=== PATIENT | female | born 1995 | race Caucasian/White ===

== ENCOUNTER 2018-07-15 07:03 | Emergency (ER) | payer MEDICAID, OTHER ==
[~2018-07-15] VITALS: Ht 157.5 cm; Wt 52.4 kg
[~2018-07-15 07:03] MED LIST: ACET500C5 PO; PREN1TAB17 PO
[2018-07-15 07:06] VITALS: BP 136/75; PULSE 78; RESP 18; Ht 157.5 cm; Wt 52.4 kg
[2018-07-15] MEDS ORDERED: NITR-58 PO (08:55)
--- NOTE | 2018-07-15 10:25 | ERD ---
ER Documentation Chief Complaint Chief Complaint pt bib self with c/o bleeding starting today, approx 3 wks HPI 23-year-old female presenting with vaginal bleeding. Patient is . A0. Does not recall her last menstrual period. Patient denies any OB care. She denies any pain. Denies medical problems. NKDA. Surgical history denies. Up-to-date on vaccinations. Social history denies ROS All systems reviewed and are negative except as per history of present illness. Medications Home Meds Active Scripts Nitrofurantoin Monohyd Macrocr* (Macrobid*) 100 Mg Capsr, 100 MG PO BID for 14 Days, CAP Prov:DONNELL ZHANG PA-C 07/15/18 Acetaminophen* (Tylophen*) 500 Mg Capsule, 1 CAP PO Q6H PRN for PAIN AND OR ELEVATED TEMP, #20 CAP Prov:DONIS THOMPSNO KOSHER DIETARY SERVICE MANAGER 11/22/15 Reported Medications Vit-Iron Fumarate-FA ( Tablet) 1 Each Tablet, 1 TAB PO DAILY, TAB 04/25/16 Allergies Allergies: Coded Allergies: No Known Drug Allergies (Verified Allergy, Unknown, 07/15/18) PMhx/Soc Medical and Surgical Hx: pt denies Medical Hx, pt denies Surgical Hx History of Surgery: No Anesthesia Reaction: No Hx Neurological Disorder: No Hx Respiratory Disorders: No Hx Cardiac Disorders: No Hx Psychiatric Problems: No Hx Miscellaneous Medical Probl: No Hx Alcohol Use: No Hx Substance Use: No Hx Tobacco Use: No Smoking Status: Never smoker FmHx Family History: No diabetes, No coronary disease, No other Physical Exam Vitals Vital Signs Date Temp Pulse Resp B/P (MAP) Pulse Ox O2 O2 Flow FiO2 Time Delivery Rate 07/15/18 97.7 78 18 136/75 98 07:06 (95) Physical Exam GENERAL: The patient is well-appearing, well-nourished, in no acute distress HEENT: Atraumatic. Conjunctivae are pink. Pupils equal, round, and reactive to light. There is no scleral icterus. Tympanic membranes clear bilaterally. Oropharynx clear. No nystagmus or photophobia. CHEST: Clear to auscultation bilaterally. There are no rales, wheezes or rhonchi. HEART: Regular rate and rhythm. No murmurs, clicks, rubs or gallops. No S3 or S4. ABDOMEN:Soft, nontender and nondistended. Good bowel sounds. No rebound or guarding. No gross peritonitis. No gross organomegaly or masses. No Ma sign or McBurney point tenderness. Result Diagram: 07/15/1827 Results 24 hrs Laboratory Tests Test 07/15/18 07:27 White Blood Count 8.0 10^3/ul Red Blood Count 4.07 10^6/ul Hemoglobin 12.0 g/dl Hematocrit 35.6 % Mean Corpuscular Volume 87.5 fl Mean Corpuscular Hemoglobin 29.5 pg Mean Corpuscular Hemoglobin Concent 33.7 g/dl Red Cell Distribution Width 13.1 % Platelet Count 299 10^3/UL Mean Platelet Volume 10.1 fl Immature Granulocytes % 0.500 % Neutrophils % 55.5 % Lymphocytes % 33.4 % Monocytes % 8.5 % Eosinophils % 1.5 % Basophils % 0.6 % Nucleated Red Blood Cells % 0.0 /100WBC Immature Granulocytes # 0.040 10^3/ul Neutrophils # 4.4 10^3/ul Lymphocytes # 2.7 10^3/ul Monocytes # 0.7 10^3/ul Eosinophils # 0.1 10^3/ul Basophils # 0.1 10^3/ul Nucleated Red Blood Cells # 0.0 10^3/ul Urine Color STRAW Urine Clarity SLIGHTLY CLOUDY Urine pH 6.0 Urine Specific [place] 1.008 Urine Ketones NEGATIVE mg/dL Urine Nitrite NEGATIVE mg/dL Urine Bilirubin NEGATIVE mg/dL Urine Urobilinogen NEGATIVE mg/dL Urine Leukocyte Esterase 3+ [place]/ul Urine Microscopic RBC 3 /HPF Urine Microscopic WBC 3 /HPF Urine Squamous Epithelial Cells FEW /HPF Urine Bacteria FEW /HPF Urine Hemoglobin 1+ mg/dL Urine Glucose NEGATIVE mg/dL Urine Total Protein NEGATIVE mg/dl Beta HCG, Quantitative 42363.0 mIU/ml Procedures/MDM DIAGNOSTIC IMAGING REPORT Patient: IAIN CALDERON : 1995 Age: 23 Sex: F MR #: [id number] DOS: 07/15/18720 Ordering MD: JASPER ZHANG PA-C Location: [facility] Room/Bed: PROCEDURE: ULTRASOUND OBSTETRICAL CLINICAL INDICATION: 23-year-old female with vaginal bleeding. TECHNIQUE: Multiple sonographic images of the pelvis were obtained. The images were reviewed on a PACS workstation. COMPARISON: No prior studies are available for comparison. FINDINGS: The cervix is closed with a length of 3.1 cm. There is a single viable intrauterine gestation. Cardiac activity is present with 152 beats per minute. There is a breech presentation. Measurements were made in order to determine age. The results are as follows: BPD = 4.36 cm, HC = 15.86 cm, AC = 13.82 cm, FL = 2.85 cm. This yields and estimated gestational age of approximately 19 weeks 0 days. The estimated date of delivery is December 09, 2018. The EFW = 268 +/- 40 g. The placenta is anterior. There is no evidence for an abruption or placenta previa. There is an adequate amount of amniotic fluid. IMPRESSION: Single viable intrauterine gestation of approximately 19 weeks 0 days. The estimated date of delivery is December 09, 2018 . MDM: 23-year-old female presenting with vaginal bleeding. I have low suspicion for complication. Patient has UTI and will be discharged with antibiotics. Patient is discharged with strict ER precautions. Patient is discharged and recommended to follow-up with OB. Patient is told symptoms change or worsen to immediately return to the ER. All questions answered at d ischarge Departure Diagnosis: Primary Impression: UTI (urinary tract infection) Additional Impression: Vaginal bleeding Condition: Stable Patient Instructions: Understanding Urinary Tract Infections (UTIs), Bleeding During Early Referrals: [facility] [id number] [id number] OFFICE FAX JAVAD CHAVEZ [address] [place] [place] [phone] [place] [address] [place], [place] [phone] EMILE CARTER [address] [facility], [facility] [address] [place] [address] [address] [place] [place] [phone] [facility] [address] [place] [address] [facility] [id number] - [place]AN [address] [facility] [address] [address], [place] [address] [facility]. [address], [facility] [address] [address], [facility] [address] [place], [place] [phone] Additional Instructions: FOLLOW UP WITH YOUR PRIMARY CARE PHYSICIAN TOMORROW.Return to this facility if you are not improving as expected. DONNELL ZHANG PA-C Jul 15, 2018 10:25
== END 2018-07-15 08:59 | disposition home or self-care (01) ==
LOC: FTE 07:03
DX: O23.42 Unspecified infection of urinary tract in pregnancy, second trimester (principal); Z3A.19 19 weeks gestation of pregnancy
CPT/HCPCS: 36415; 76805; 81001; 84702; 85025; 86900; 86901; Z7502

== ENCOUNTER 2018-10-01 12:26 | Outpatient (CLI) | payer MEDICAID, OTHER ==
[~2018-10-01] VITALS: Ht 165.1 cm; Wt 59.1 kg
[~2018-10-01 12:26] MED LIST changes: +NITR-58 PO
[2018-10-01 13:31] VITALS: BP 111/71; PULSE 88; Ht 165.1 cm; Wt 59.1 kg
--- NOTE | 2018-10-01 16:17 | PN ---
Triage Information Date/Time 10/01/1803/14/1611 Reason for visit: Abd/pelvic pain Weeks of Gestation 34w1d /Para Diabetes: none Hypertention: none Additional information vaginal spotting and leaking pain was yesterday worse today much better after resting lifting baby 2yrs Objective Vital Signs Date Temp Pulse Resp B/P (MAP) Pulse Ox O2 O2 Flow FiO2 Time Delivery Rate 10/01/18 98.2 88 111/71 13:31 (84) Heart Rate: 140's Contractions: >10 Minutes Apart Exam ROM plus neg B Results/Medications Results 24 hrs Laboratory Tests Test 10/01/18 13:25 10/01/18 15:10 Urine Color YELLOW Urine Clarity SLIGHTLY CLOUDY A Urine pH 8.0 Urine Specific [place] 1.018 Urine Ketones NEGATIVE Urine Nitrite NEGATIVE Urine Bilirubin NEGATIVE Urine Urobilinogen NEGATIVE Urine Leukocyte Esterase 1+ H Urine Microscopic RBC 1 Urine Microscopic WBC 8 H Urine Squamous Epithelial Cells FEW Urine Bacteria FEW A Urine Hemoglobin 1+ H Urine Glucose NEGATIVE Urine Total Protein 1+ H Membranes Rupture NEGATIVE Imaging Results BPP 03/03 KARTHIKEYAN 15.8 breech presentation CVL 4.1 Disposition: Discharge Assessment/Plan IUP 34w1d pelvic pain ligament pain Plan discharge home with instruction not to handle heavy object avoid sudden motion LILY MARCELINO MD Oct 01, 2018 16:17
--- NOTE | 2018-10-01 17:20 | TRIAGE ---
OB Triage Datetime Report Generated by CPN: 10/01/2018 17:20 Datetime: 10/01/2018 16:01 Stage of : OB Triage Datetime: 10/01/2018 15:32 Labor Evaluation Frequency: X1 Monitor Mode: External Duration (sec)2399: 40 Quality: Mild Pattern: Normal: <= 5 Contractions in 10 Minutes Resting Tone [place]: Relaxed Heart Rate FHR Baseline Rate: 145 Monitor Mode: External US Variability: Moderate 6-25 bpm Accelerations: 10X10 Decelerations: None Category: Category I Pain Assessment Pain Scale: 0 Pain Presence: None/Denies Pain Type: N/A Pain Goal: 3 Pain Relief Measures: Comfort Measures Datetime: 10/01/2018 14:35 Labor Evaluation Frequency: 0 Monitor Mode: External Pattern: Normal: <= 5 Contractions in 10 Minutes Resting Tone [place]: Relaxed Heart Rate FHR Baseline Rate: 135 Monitor Mode: External US Variability: Moderate 6-25 bpm Accelerations: 10X10 Decelerations: None Category: Category I Pain Assessment Pain Scale: 0 Pain Presence: None/Denies Pain Type: N/A Pain Goal: 3 Pain Relief Measures: Comfort Measures Datetime: 10/01/2018 13:28 Stage of : OB Triage Assessment Type: Triage Maternal Assessment Level of Consciousness: Fully Conscious DTR's/Clonus: DTRs 2+; No Clonus Headache: Denies Blurred Vision: No Respiratory Effort: Unlabored; Regular Rhythm; Equal Expansion Breath Sounds, Left: Clear and Equal Breath Sounds, Right: Clear and Equal Nausea/Vomiting: Denies RUQ Epigastric Pain: Denies Facial Edema: None Temperature Route: Axillary Fall Risk Assessment History of Falling: (0) No Secondary Diagnosis: (0) No Ambulatory Aid: (0) Bedrest/Nurse Assist IV Therapy: (0) No Gait: (0) Normal/Bedrest/Immobile Mental Status: (0) Oriented to Own Ability Fall Score: 0 Fall Risk Score Definition: No Risk: No action required Labor Evaluation Frequency: 0 Monitor Mode: External Pattern: Normal: <= 5 Contractions in 10 Minutes Resting Tone [place]: Relaxed Heart Rate FHR Baseline Rate: 145 Monitor Mode: External US Variability: Moderate 6-25 bpm Accelerations: 10X10 Decelerations: None Category: Category I Pain Assessment Pain Scale: 0 Pain Presence: None/Denies Pain Type: Cramping Pain Location: Right Groin Pain Goal: 3 Pain Relief Measures: Comfort Measures Datetime: 10/01/2018 13:27 EGA: 34.1 Datetime: 10/01/2018 13:25 Time of Arrival: 10/01/2018 12:10 Arrived By: Ambulatory Arrived From: Home Chief Complaint: C/O LEAKING, SPOTTING, AND LOWER PERINEAL PAIN SINCE LAST NIGH Movement: Present Contractions: Occasional Rupture of Membranes: Unsure Vaginal Bleeding: Scant Vaginal Discharge: Present Recent Sexual Intercouse: Denies Abdominal Trauma: Not Applicable Patient Complaints: Cramping Time Provider Notified: 10/01/2018 14:43 Provider Notified: CHARI Initial Plan: MONITOR, ROM PLUS, NITRAZINE,
== END 2018-10-01 16:15 | disposition home or self-care (01) ==
LOC: L-D 12:26 → OBT 12:26 → L-D 13:24 → OBT 16:15
PROVIDERS: ATTEND Obstetrics & Gynecology
DX: O26.893 Other specified pregnancy related conditions, third trimester (principal); Z3A.34 34 weeks gestation of pregnancy; R10.2 Pelvic and perineal pain
CPT/HCPCS: 76817; 76818; 81001; 84112; 87086; Z7500; G0463

== ENCOUNTER 2018-11-11 19:36 | Outpatient (CLI) | payer OTHER ==
[~2018-11-11] VITALS: Ht 154.9 cm; Wt 61.1 kg
[~2018-11-11 19:36] MED LIST changes: -ACET500C5 PO; -NITR-58 PO
[2018-11-11 20:20] VITALS: BP 117/73; PULSE 74; RESP 18
[2018-11-11 20:21] VITALS: Ht 154.9 cm; Wt 61.1 kg
--- NOTE | 2018-11-11 23:26 | PN ---
Triage Information Date/Time 11/11/18 Reason for visit: vaginal pressure sensation Weeks of Gestation 35w4d /Para Diabetes: none Hypertention: none Objective Vital Signs Date Temp Pulse Resp B/P (MAP) Pulse Ox O2 O2 Flow FiO2 Time Delivery Rate 11/11/18 99.0 74 18 117/73 Room Air 20:20 (88) Heart Rate: 130's Heart Rate Comments CAT I Contractions: >10 Minutes Apart Exam VE /-3 Results/Medications Results 24 hrs Laboratory Tests Test 11/11/18 20:00 Urine Color YELLOW Urine Clarity SLIGHTLY CLOUDY A Urine pH 7.0 Urine Specific [place] 1.011 Urine Ketones NEGATIVE Urine Nitrite NEGATIVE Urine Bilirubin NEGATIVE Urine Urobilinogen NEGATIVE Urine Leukocyte Esterase 3+ H Urine Microscopic RBC 4 Urine Microscopic WBC 18 H Urine Squamous Epithelial Cells FEW Urine Bacteria FEW A Urine Hemoglobin NEGATIVE Urine Glucose NEGATIVE Urine Total Protein NEGATIVE Imaging Results BPP 8/8 KARTHIKEYAN 16.7 Disposition: Discharge Assessment/Plan IUP 35w4d NIL UTI Plan discharge home with Rx cephalexin 500mg Q6hrs #28 RTH prpn with routine labor instructions LILY MARCELINO MD Nov 11, 2018 23:26
--- NOTE | 2018-11-12 00:36 | TRIAGE ---
OB Triage Datetime Report Generated by CPN: 11/12/2018 00:36 Datetime: 11/11/2018 22:39 Stage of : OB Triage Vaginal Exam Dilatation (cms): 1.0 Effacement (%): 50 Station: -3 Exam By: GKashman, RN Datetime: 11/11/2018 22:24 Stage of : OB Triage Labor Evaluation Frequency: Irregular Monitor Mode: External Duration (sec)2399: 40-70 Pattern: Normal: <= 5 Contractions in 10 Minutes Resting Tone [place]: Relaxed Heart Rate FHR Baseline Rate: 120 Monitor Mode: External US Variability: Moderate 6-25 bpm Accelerations: 15X15 Decelerations: None Category: Category I Pain Assessment Pain Scale: 0 Pain Presence: None/Denies Pain Type: N/A Pain Relief Measures: Comfort Measures Datetime: 11/11/2018 22:15 Stage of : OB Triage Datetime: 11/11/2018 20:55 Stage of : OB Triage Datetime: 11/11/2018 20:50 Stage of : OB Triage Datetime: 11/11/2018 20:22 Stage of : OB Triage Assessment Type: Triage Maternal Assessment Level of Consciousness: Fully Conscious DTR's/Clonus: DTRs 2+; No Clonus Headache: Denies Blurred Vision: No Respiratory Effort: Unlabored; Regular Rhythm; Equal Expansion Breath Sounds, Left: Clear and Equal Breath Sounds, Right: Clear and Equal Nausea/Vomiting: Denies RUQ Epigastric Pain: Denies Lower Extremities Edema: None Degree: None Upper Extremities Edema: None Degree: None Facial Edema: None Temperature Route: Oral Fall Risk Assessment History of Falling: (0) No Secondary Diagnosis: (0) No Ambulatory Aid: (0) Bedrest/Nurse Assist IV Therapy: (0) No Gait: (0) Normal/Bedrest/Immobile Mental Status: (0) Oriented to Own Ability Fall Score: 0 Fall Risk Score Definition: No Risk: No action required Monitor Mode: External Contraction Comments: No contractions noted on monitor or by palpation. Heart Rate FHR Baseline Rate: 130 Monitor Mode: External US Variability: Moderate 6-25 bpm Decelerations: None Category: Category I Pain Assessment Pain Scale: 0 Pain Presence: None/Denies Pain Type: N/A Pain Goal: 0 Pain Relief Measures: Comfort Measures Datetime: 11/11/2018 20:19 Stage of : OB Triage Vaginal Exam Dilatation (cms): 1.0 Effacement (%): 50 Station: -3 Exam By: CADENCE Montemayor Datetime: 11/11/2018 20:11 Time of Arrival: 11/11/2018 19:29 EGA: 35.4 Arrived By: Wheelchair Arrived From: Emergency Dept Chief Complaint: Vaginal pressure Movement: Present Contractions: Occasional Rupture of Membranes: Denies Vaginal Discharge: Present Abdominal Trauma: Not Applicable Patient Complaints: Other Time Provider Notified: 11/11/2018 20:20 Provider Notified: fermín Initial Plan: EFM, VS, SVE, BPP, KARTHIKEYAN, UA Datetime: 10/01/2018 13:28 Fall Score: 0 Fall Risk Score Definition: No Risk: No action required Datetime: 10/01/2018 13:27 EGA: 29.5
== END 2018-11-11 23:00 | disposition home or self-care (01) ==
LOC: OBT 19:36 → L-D 19:37 → OBT 23:00
PROVIDERS: ATTEND Obstetrics & Gynecology
DX: O23.43 Unspecified infection of urinary tract in pregnancy, third trimester (principal); Z3A.35 35 weeks gestation of pregnancy
CPT/HCPCS: 76818; 81001; 87086; Z7500; G0463

== ENCOUNTER 2018-12-01 10:10 | Inpatient (IN) | payer OTHER ==
[~2018-12-01] VITALS: Ht 152.4 cm; Wt 63.2 kg
[2018-12-01 10:16] VITALS: BP 112/71; PULSE 73; RESP 19; Ht 152.4 cm; Wt 63.2 kg
--- NOTE | 2018-12-01 11:38 | TRIAGE ---
OB Triage Datetime Report Generated by CPN: 12/01/2018 11:38 Datetime: 12/01/2018 11:08 Vaginal Exam Dilatation (cms): 5.0 Effacement (%): 80 Station: -2 Exam By: A GHUKASYAN Datetime: 12/01/2018 10:21 Assessment Type: Triage Maternal Assessment Level of Consciousness: Fully Conscious DTR's/Clonus: DTRs 2+; No Clonus Headache: Denies Blurred Vision: No Respiratory Effort: Unlabored; Regular Rhythm; Equal Expansion Breath Sounds, Left: Clear and Equal Breath Sounds, Right: Clear and Equal Nausea/Vomiting: Denies RUQ Epigastric Pain: Denies Lower Extremities Edema: None Degree: None Upper Extremities Edema: None Degree: None Facial Edema: None Fall Risk Assessment History of Falling: (0) No Secondary Diagnosis: (0) No Ambulatory Aid: (0) Bedrest/Nurse Assist IV Therapy: (0) No Gait: (0) Normal/Bedrest/Immobile Mental Status: (0) Oriented to Own Ability Fall Score: 0 Fall Risk Score Definition: No Risk: No action required Datetime: 12/01/2018 10:20 Time of Arrival: 12/01/2018 10:02 EGA: 38.3 Arrived By: Ambulatory Arrived From: Home Chief Complaint: LOWER ABD PRESSURE Movement: Present Contractions: Irregular Time Contractions Began: 12/01/2018 06:00 Rupture of Membranes: Denies Vaginal Bleeding: None Vaginal Discharge: Denies Recent Sexual Intercouse: Denies Abdominal Trauma: Not Applicable Patient Complaints: Contractions; Back Pain; Other Time Provider Notified: 12/01/2018 11:20 Provider Notified: DR RAND Initial Plan: NST BPP EFW UA Labor Evaluation Frequency: OCCAS Monitor Mode: External Duration (sec)2399: 50-60 Quality: Mild Pattern: Normal: <= 5 Contractions in 10 Minutes Resting Tone [place]: Relaxed Heart Rate FHR Baseline Rate: 130 Monitor Mode: External US Variability: Moderate 6-25 bpm Accelerations: 15X15 Decelerations: None Category: Category I Datetime: 11/11/2018 20:22 Fall Score: 0 Fall Risk Score Definition: No Risk: No action required Datetime: 11/11/2018 20:11 EGA: 35.4 Datetime: 10/01/2018 13:28 Fall Score: 0 Fall Risk Score Definition: No Risk: No action required Datetime: 10/01/2018 13:27 EGA: 29.5 Presentation 'A': Cephalic
[2018-12-01] MEDS: LACTATED RINGER'S 1,000 ML IV SCH ×2 (11:55→12:58)
[2018-12-01] MEDS ORDERED: IBUPROFEN 600 MG TAB PO PRN (12:00)
[2018-12-01] MEDS ORDERED: OXYTOCIN 30 UNITS/LR 500 ML IV PRN ×2 (12:00→17:00)
[2018-12-01] MEDS ORDERED: METHYLERGONOVINE 0.2 MG INJ IM PRN ×2 (12:00→17:00)
[2018-12-01] MEDS ORDERED: AMPICILLIN 2 GM/NS (PMX) 100 ML IV ONE (12:00)
[2018-12-01] MEDS ORDERED: CARBOPROST 250 MCG INJ IM PRN ×2 (12:00→17:00)
[2018-12-01] MEDS ORDERED: MISOPROSTOL 200 MCG TAB PR PRN ×2 (12:00→17:00)
[2018-12-01] MEDS ORDERED: BUTORPHANOL 2 MG INJ IV PRN (12:00)
[2018-12-01] MEDS ORDERED: OXYTOCIN 30 UNITS/LR 500 ML IV SCH ×4 (12:00→16:32)
[2018-12-01] MEDS ORDERED: LIDOCAINE 1% (MPF) 30 ML INJ INJ PRN (12:00)
[2018-12-01] MEDS ORDERED: MINERAL OIL LIGHT 10 ML VIAL TOP ONE (12:30)
--- NOTE | 2018-12-01 12:41 | PREAC ---
Date/Time of Note Date/Time of Note DATE: 12/01/18 TIME: 12:41 Anesthesia Eval and Record Evaluation Time Pre-Procedure Interview DATE: 12/01/18 TIME: 12:41 Age 23 Sex female NPO: 8 hrs Preoperative diagnosis Planned procedure labor epidural Past Medical History Past Medical History: None Surgery & Anesthesia Issues No known issue Meds Anticoagulation: No Beta Luigi within 24 hr: No Reason Beta Luigi not given: Pt. not on B-Luigi Reported Medications Vit-Iron Fumarate-FA ( Tablet) 1 Each Tablet, 1 TAB PO DAILY, TAB 04/25/16 Current Medications Lactated Ringer's 1,000 ml @ 125 mls/hr Q8H IV Last administered on 12/01/18at 11:55; Admin Dose 125 MLS/HR; Start 12/01/18 at 11:44 Butorphanol Tartrate (Stadol) 2 mg Q2H PRN IV .PAIN SCALE 6-10; Start 12/01/18 at 12:00 Lidocaine (Xylocaine 1% (Mpf)) 30 ml ONCE PRN INJ .EPISIOTOMY; Start 12/01/18 at 12:00 Oxytocin/Lactated Ringer's 500 ml @ 500 mls/hr ONCE POST IV ; Start 12/01/18 at 12:00 Oxytocin/Lactated Ringer's 500 ml @ 125 mls/hr POST IV ; Start 12/01/18 at 12:00 Ibuprofen (Motrin) 600 mg ONCE PRN PO .PAIN 1-5; Start 12/01/18 at 12:00 Oxytocin/Lactated Ringer's 500 ml @ 0 mls/hr ONCE PRN IV .VAGINAL BLEEDING; Start 12/01/18 at 12:00 Methylergonovine Maleate (Methergine) 0.2 mg ONCE PRN IM .VAGINAL BLEEDING; Start 12/01/18 at 12:00 Carboprost Tromethamine (Hemabate) 250 mcg ONCE PRN IM .VAGINAL BLEEDING; Start 12/01/18 at 12:00 Misoprostol (Cytotec) 1,000 mcg ONCE PRN [place] .VAGINAL BLEEDING; Start 12/01/18 at 12:00 Oxytocin/Lactated Ringer's 500 ml @ 0 mls/hr FOR AUGMENTATION IV Last administered on 12/01/18at 12:35; Admin Dose 1 MLS/HR; Start 12/01/18 at 12:30 Meds reviewed: Yes Allergies Coded Allergies: No Known Drug Allergies (Verified Allergy, Unknown, 07/15/18) Allergies Reviewed: Yes Labs/Studies Labs Reviewed: Reviewed by anesthesiologist Result Diagram: 12/01/18 1145 Laboratory Tests 12/01/18 11:45 Blood Bank Test 12/01/18 11:45 Blood Type O POSITIVE Rh Immune Globulin Candidate NO test: Positive Pre-procedure Exam Last vitals Vital Signs Date Temp Pulse Resp B/P (MAP) Pulse Ox O2 O2 Flow FiO2 Time Delivery Rate 12/01/18 97.9 73 19 112/71 Room Air 10:16 (85) Airway: Adequate mouth opening, Adequate thyromental dist Mallampati: Mallampati II Teeth: Normal Lung: Normal Heart: Normal ASA Physical Status ASA physical status: 2 Emergency: None Planned Anesthetic Neuraxial: Epidural Pre-operative Attestations Prior to commencing anesthesia and surgery, the patient was re-evaluated, there was verification of: *The patient's identity *The results of appropriate recent lab work and preoperative vital signs *The above evaluation not changing prior to induction *Anesthetic plan, risk benefits, alternative and complications discussed with patient/family; questions answered; patient/family understands, accepts and wishes to proceed. KULWINDER PINEDA December 01, 2018 12:41
[2018-12-01] MEDS ORDERED: DIPHENHYDRAMINE 50 MG INJ IV PRN ×2 (13:00→17:00)
[2018-12-01] MEDS ORDERED: ONDANSETRON 4 MG INJ IV PRN ×2 (13:00→17:00)
[2018-12-01] MEDS ORDERED: KETOROLAC 30 MG INJ IV PRN (13:00)
[2018-12-01] MEDS ORDERED: FENTAnyl 2MCG/ML-ROPIV 0.2% 100 ML BAG EPI SCH (13:00)
[2018-12-01] MEDS ORDERED: HYDROmorphONE 0.5 MG/0.5 ML SYG IV PRN ×2 (13:00)
[2018-12-01] MEDS ORDERED: NALOXONE (0.4 MG/ML) INJ IV PRN (13:00)
[2018-12-01] MEDS ORDERED: AMPICILLIN 1 GM/NS (PMX) 50 ML IV SCH (14:30)
--- NOTE | 2018-12-01 14:38 | HP ---
Date/Time of Note Date/Time of Note DATE: 12/01/18 TIME: 14:36 OB - History Hx of Present Free Text/Dictation 23 years old 2 para 1-0-0-1 with single intrauterine at 38 weeks and 3 days complaining of uterine contractions. She states good movement. She denies nausea, vomiting, shortness of breath, chest pain, headache, visual changes, vaginal bleeding or LOF. Chief Complaint: Uterine contractions Estimated Due Date: December 12, 2018 : 2 Para: 1 Spontaneous : 0 Therapeutic : 0 Care: Good Care Ultrasounds: Normal mid trimester US Obstetrical Complications: None Medical Complications: None Past Family/Social History * Past Medical, Surgical, Family and Obstetric Histories reviewed from chart. Blood Type: O+ Rubella: immune RPR/VDRL: Negative GBS Status: Negative HBsAG: Negative OB Admission Exam Vital Signs Vital Signs Vital Signs Date Temp Pulse Resp B/P (MAP) Pulse Ox O2 O2 Flow FiO2 Time Delivery Rate 12/01/18 97.9 73 19 112/71 Room Air 10:16 (85) Physical Exam HEENT: WNL Heart: Rhythm Normal Lungs: Clear Abdomen: WNL Extremities: Normal Cervical Dilatation: 5cm Effacement: 75% Station: -2 Membranes: Intact Heart Rate: 130's Accelerations: Accelerations Present Decelerations: No Decelerations Varibility: Moderate Contractions on Admission: < 5 Minutes Apart Intensity: Firm Last 72 hours Lab Results CBC & BMP 12/01/18 11:45 OB Assessment/Plan Other plan: 23 years old 2 para 1-0-0-1 at 38 weeks and 3 days in active labor - FHR: No sign of metabolic acidosis- Category I - Continuous EFM, toco - CBC, blood type and screen - Analgesia options with R/B/A discussed in detail with patient - Epidural per patient request - Please see the orders - O+/Rubella: Immune - GBS: Negative Admission, procedures, expectations, risks and possible complications have been discussed in detail with the patient. Risk of vaginal delivery including but not limited to bleeding, infection, cervical laceration, placental retention, injury to fetus, blood transfusion, blood transfusion related infection, risk of anesthesia, adhesion, cervical laceration, episiotomy/laceration, possible delivery with risk of bleeding, infection, injury to other organs (bowel, bladder, ureter, vessels, nerves), injury to fetus, blood transfusion, blood transfusion related infection, risk of anesthesia, scar and hernia formation, needs for future , removal of uterus or any other indicated surgery discussed with the patient. She expressed understanding and repeats the risks. All of her questions were answered. She signed the informed consent. PHYSICIAN'S VERIFICATION OF INFORMED CONSENT The patient was counseled regarding the procedure, its indications, risks, potential complications and alternatives and any questions were answered. Consent was obtained. PLANNED PROCEDURE/TREATMENT: Vaginal delivery, episiotomy, repair of laceration possible delivery SUNG RAND December 01, 2018 14:38
--- NOTE | 2018-12-01 14:41 | LDN ---
Date/Time of Note Date/Time of Note DATE: 12/01/18 TIME: 14:38 Delivery Summary 23 years old 2 para 1-0-0-1 with single intrauterine at 38 weeks and 3 days delivered a viable male over intact perineum. There was a tight nuchal cord which clamped and cut. Rest of body delivered. Baby given to the nurse. Placenta delivered spontaneously and intact with three- vessel cord. Patient tolerated procedure well Time of delivery 14:19 Weight 6 pounds 11 ounces Height 19.5 inches 8 at 1 minutes and 9 at 5 minutes EBL 150 mL Weeks of Gestation The 8 weeks and 3 days Placenta Delivered: Spontaneously Meconium: none Episiotomy: No Anesthesia type: Epidural Estimated blood loss: 150 Sponge & Needle done & correct: Yes All needle counts correct: Yes Any foreign bodies felt in the: No Infant Delivery Information Sex Infant Sex: male Apgars 1 Minute: 8 5 Minute: 9 10 Minute: 10 Suctioning Nose & mouth suctioned at sweta: Yes Umbilical Cord Umbilical cord with: 3 Vessels Cord presentations: nuchal cord Nuchal cord present X: 1 Cord Blood was obtained: Yes Mother & Baby Disposition Disposition Mom & Baby to Maternity; Good: Yes SUNG RAND December 01, 2018 14:41
[2018-12-01 15:25] VITALS: BP 138/85; PULSE 63; RESP 16
[2018-12-01] MEDS ORDERED: MAGNESIUM HYDROXIDE 30ML CUP PO PRN (17:00)
[2018-12-01] MEDS ORDERED: LANOLIN HPA 1 PKT TOP PRN (17:00)
[2018-12-01] MEDS ORDERED: WITCH HAZEL/GLYCERIN PAD PR PRN (17:00)
[2018-12-01] MEDS ORDERED: SENNA/DOCUSATE NA (8.6MG/50MG) TAB PO PRN (17:00)
[2018-12-01] MEDS ORDERED: ZOLPIDEM 5 MG TAB PO PRN (17:00)
[2018-12-01] MEDS ORDERED: DIBUCAINE 1% 30 GM OINT TOP PRN (17:00)
[2018-12-01] MEDS ORDERED: ACETAMINOPHEN 325 MG TAB PO PRN (17:00)
[2018-12-01] MEDS ORDERED: OXYCODONE/ASPIRIN (4.88/325) TAB PO PRN (17:00)
[2018-12-01] MEDS ORDERED: BENZOCAINE 20% 56 ML SPRAY TOP PRN (17:00)
[2018-12-01] MEDS: IBUPROFEN 600 MG TAB PO SCH ×2 (17:36→23:51)
--- NOTE | 2018-12-01 19:43 | PAC ---
Date/Time of Note Date/Time of Note DATE: 12/01/18 TIME: 19:43 Post-Anesthesia Notes Post-Anesthesia Note Last documented vital signs Vital Signs Date Temp Pulse Resp B/P (MAP) Pulse Ox O2 O2 Flow FiO2 Time Delivery Rate 12/01/18 97.8 63 16 138/85 Room Air 15:25 (102) Activity: WNL Respiratory function: WNL Cardiovascular function: WNL Mental status: Baseline Pain reasonably controlled: Yes Hydration appropriate: Yes Nausea/Vomiting absent: Yes KULWINDER PINEDA December 01, 2018 19:43
[2018-12-01] MEDS: LACTATED RINGER'S 1,000 ML IV* SCH (20:00)
[2018-12-01] MEDS: DEXTROSE 5%-LR 1,000 ML IV SCH (20:00)
[2018-12-02 00:20] VITALS: BP 108/55; PULSE 60; RESP 18
[2018-12-02] MEDS: LACTATED RINGER'S 1,000 ML IV* SCH ×3 (00:32→16:32)
[2018-12-02] MEDS: DEXTROSE 5%-LR 1,000 ML IV SCH ×3 (00:32→16:32)
[2018-12-02 03:26] VITALS: BP 107/59; PULSE 62; RESP 18
[2018-12-02] MEDS: IBUPROFEN 600 MG TAB PO SCH ×4 (05:40→23:58)
[2018-12-02 07:45] VITALS: BP 113/68; PULSE 51; RESP 16
[2018-12-02 16:15] VITALS: BP 106/62; PULSE 70
--- NOTE | 2018-12-02 17:25 | PN ---
Date/Time of Note Date/Time of Note DATE: 12/02/18 TIME: 17:24 OB Subjective Subjective Subjective Denies any complaint. Breast-feeding. Ambulating. Denies any chest pain, di zziness, lightheadedness, shortness of breath, vaginal bleeding decreased. OB Objective Objective Objective GA: A&O,NAD Abdomen. Soft,non tender. Firm and palpable at the level of umbilicus Lungs: Clear to auscultation bilaterally CV: RRR VS - Last 72 Hours, by Label Date Temp Pulse Resp B/P (MAP) Pulse Ox O2 O2 Flow FiO2 Time Delivery Rate 12/02/18 98.3 70 106/62 Room Air 16:15 (77) 12/02/18 97.8 51 16 113/68 Room Air 07:45 (83) 12/02/18 98.6 62 18 107/59 Room Air 03:26 (75) 12/02/18 98.2 60 18 108/55 Room Air 00:20 (72) 12/01/18 97.8 63 16 138/85 Room Air 15:25 (102) 12/01/18 97.9 73 19 112/71 Room Air 10:16 (85) Laboratory Tests Test 12/02/18 06:24 12/02/18 09:48 Lab Scanned Report REFERENCE LAB White Blood Count 11.6 #H Red Blood Count 3.91 L Hemoglobin 11.0 L Hematocrit 33.7 L Mean Corpuscular Volume 86.2 Mean Corpuscular Hemoglobin 28.1 L Mean Corpuscular Hemoglobin Concent 32.6 Red Cell Distribution Width 14.5 Platelet Count 258 Mean Platelet Volume 11.2 H Immature Granulocytes % 0.700 H Neutrophils % 71.7 Lymphocytes % 19.7 Monocytes % 6.4 Eosinophils % 1.2 Basophils % 0.3 Nucleated Red Blood Cells % 0.0 Immature Granulocytes # 0.080 H Neutrophils # 8.3 H Lymphocytes # 2.3 Monocytes # 0.7 Eosinophils # 0.1 Basophils # 0.0 Nucleated Red Blood Cells # 0.0 OB Assessment/Plan Other Assessment: day #1 Status post Doing well Routine care Anticipate DC home tomorrow LEO GLOVER MD December 02, 2018 17:25
[2018-12-02 20:00] VITALS: BP 97/54; PULSE 79; RESP 18
[2018-12-03 03:50] VITALS: BP 100/78; PULSE 79; RESP 18
[2018-12-03] MEDS: IBUPROFEN 600 MG TAB PO SCH ×2 (05:20→12:17)
[2018-12-03 08:00] VITALS: BP 111/63; PULSE 64; RESP 18
[2018-12-03] MEDS ORDERED: DIPHTH/TET/ACEL PERTUSS (ADULT) 0.5 ML VIAL IM* ONE (09:00)
[2018-12-03] MEDS ORDERED: MEASLES,MUMPS,RUBELLA VACCINE INJ SC* ONE (09:00)
--- NOTE | 2018-12-03 15:10 | PD.PPDC ---
PEDIATRIC OCCUPATIONAL THERAPIST Discharge Instruction Diagnosis [id number] Final Diagnosis: [id number] S/P Condition [id number] Patient Condition: Wguad1g Stable Diet [id number] Diet: Facyg8t Resume Regular Diet Activity/Restrictions [id number] Activity: [id number] May Shower [id number] Restrictions: Zkntx7s No Lifting No Sexual Activity Nothing in the Vagina No [place] No Tampons, douche Follow-up Follow-up with Physician: 2, Week/Weeks Return to clinic for Gckrv1En EMPLOYEE DEVELOPMENT DIRECTOR Instructions: [id number] Fever greater than 101 Chills Worsening abdominal pain Excessive Vaginal Bleeding More than 2 pads per hour Unable to tolerate diet [id number] OB Instructions: Tolml5u Breast Tenderness Depression Blurried Vision Headache LILY MARCELINO MD December 03, 2018 15:10
--- NOTE | 2018-12-03 18:47 | DS ---
Date/Time of Note Date/Time of Note DATE: 12/03/18 TIME: 18:46 Obstetrical Discharge Record Final Diagnosis Final Diagnosis: Term delivered Vaginal Delivery Obstetrical Delivery: Spontaneous Complications Augmentation: No Induction: No Rupture of Membranes: No Condition on Discharge Physical Assessment Last Vitals: VSS afebrile Voiding: Yes Bowel Movement: Yes Breast: Soft, non-tender Fundus: Firm Abdomen and Incision: n/a Episiotomy: n/a Calf Tenderness: No Patient Condition: Stable LILY MARCELINO MD December 03, 2018 18:47
--- NOTE | 2018-12-04 16:57 | DELSUM ---
Delivery Summary A-C Datetime Report Generated by CPN: 12/04/2018 16:57 DELIVERY PERSONNEL Travel Director: Cubil, [place] MATERNAL INFORMATION Medications in Delivery: pitocin Delivery QBL (ml): 150 Placenta Cultured: No Maternal Complications: Other LABOR SUMMARY EDC: 12/12/2018 00:00 No. Babies in Womb: 1 Attempted: No Labor Anesthesia: Epidural LABOR INFORMATION Reason for Induction: Not Applicable Onset of Labor: 12/01/2018 04:00 Complete Dilatation: 12/01/2018 14:10 Oxytocin: N/A Group B Beta Strep: Negative Antibiotics # of Doses: 0 Steroids Given: None Reason Steroids Not Administered: Not Applicable MEMBRANES Membranes Rupture Method: Spontaneous Rupture of Membranes: 12/01/2018 14:10 Length of Rupture (hr): 0.15 Amniotic Fluid Color: Clear Amniotic Fluid Amount: Moderate Amniotic Fluid Odor: Normal STAGES OF LABOR Stage 1 hr: 10 Stage 1 min: 10 Stage 2 hr: 0 Stage 2 min: 9 Stage 3 hr: 0 Stage 3 min: 1 Total Time in Labor hr: 10 Total Time in Labor min: 20 VAGINAL DELIVERY Episiotomy: None Laceration Extension: N/A Laceration Type: None Laceration Repair: Not Applicable Initial Vag Sponge Count: 10 Final Vag Sponge Count: 10 Initial Vag Sharps Count: 1 Final Vag Sharps Count: 1 Sponge Count Correct: Yes Sharps Count Correct: Yes BABY A INFORMATION Infant Delivery Date/Time: 12/01/2018 14:19 Method of Delivery: Vaginal Born in Route : No : N/A Forceps: N/A Vacuum Extraction: N/A Shoulder Dystocia : N/A SHOULDER DYSTOCIA BABY A Infant Delivery Date/Time: 12/01/2018 14:19 PRESENTATION/POSITION BABY A Presentation: Cephalic Cephalic Presentation: Vertex Vertex Position: Left Occipital Anterior Breech Presentation: N/A PLACENTA INFORMATION BABY A Placenta Delivery Time : 12/01/2018 14:20 Placenta Method of Delivery: Spontaneous Placenta Status: Delivered SCORES BABY A Heart Rate 1 min: >100 bpm Resp Effort 1 min: Good Cry Reflex Irritability 1 min: Cough/Sneeze/Pulls Away Muscle Tone 1 min: Active Motion Color 1 min: Blue/Pale Resuscitation Effort 1 min: Tactile Stimulation; Oxygen SCORE 1 MIN: 8 Heart Rate 5 min: >100 bpm Resp Effort 5 min: Good Cry Reflex Irritability 5 min: Cough/Sneeze/Pulls Away Muscle Tone 5 min: Active Motion Color 5 min: Body [place], Extremit Blue Resuscitation Effort 5 min: Tactile Stimulation SCORE 5 MIN: 9 INFORMATION BABY A Gestational Age at Delivery: 38.3 Gestational Status: Early Term- 37- 38.6 Weeks Infant Outcome : Liveborn Infant Condition : Stable Sex: Male IDENTIFICATION/MEDS BABY A ID Band Number: [id number] ID Band Location: Right Leg; Left Leg Sensor Applied: Yes Sensor Number: [id number] Sensor Location : Cord Clamp Vitamin K Given : Not Given Erythromycin Given: Not Given WEIGHT/LENGTH BABY A Infant Birthweight (gm): 3025 Infant Weight (lb): 6 Infant Weight (oz): 11 Infant Length (in): 19.50 Infant Length (cm): 49.53 CORD INFORMATION BABY A No. Cord Vessels: 3 Nuchal Cord : Around Neck x1, Loose Cord Blood Taken: Yes Infant Suction: Mouth; Nose ASSESSMENT BABY A Infant Complications: None Physical Findings at Delivery: Within Normal Limits Respirations: Appears Normal Dry Pan Feeder/ALS Called : No Care By: porsha quiles Transferred To: Remains with Mother
== END 2018-12-03 16:21 | disposition home or self-care (01) | DRG 807 ==
LOC: OBT 10:10 → L-D 10:11 → OBT 11:15 → L-D 11:15 → PP1 15:19
PROVIDERS: ADMIT Obstetrics & Gynecology; ATTEND Obstetrics & Gynecology
PROC: 10E0XZZ Delivery of Products of Conception, External Approach (ICD-10-PCS; principal; 2018-12-01)
DX: O69.1XX0 Labor and delivery complicated by cord around neck, with compression, not applicable or unspecified (principal); Z37.0 Single live birth; Z3A.38 38 weeks gestation of pregnancy; Z23 Encounter for immunization
CPT/HCPCS: 76815; 76818; 81001; 85025; 85610; 85730; 86592; 86850; 86900; 86901; 87340; 88307; 90715; G0463; J2590; J3010; J7120; J7121